=== PATIENT | female | born 1965 | race Caucasian/White ===

== ENCOUNTER → 2020-01-19 | Outpatient (CLI) | payer OTHER ==
[~2020-01-19] MED LIST: ALBU90OI INH; ALBU90OI61 INH; AMOX500 PO; AZIT250 PO; DOXY100 PO; HYDACE5 PO; LEVSOD100 PO; LEVSOD50 PO; MOMENI; Mucinex600 MG PO; Norco 5-325 Ta1 EACH PO; PENVK500 PO; POLTRIOPSO OD; PRAHYD1AE TOP; RXALBOI INH; Veramyst10 GM NS; Zithromax250 MG PO
[2020-01-19 14:59] LABS: Free Thyroxine 0.94 ng/dL (0.70-1.60); Thyroid Stimulating Hormone 4.763 uIU/mL (0.360-4.800)
== END | disposition home or self-care (01) ==
LOC: LAB EV 14:30 → LAB SHORT 14:30
PROVIDERS: Physician Assistant
DX: E03.9 Hypothyroidism, unspecified (principal)
CPT/HCPCS: 84439; 84443; 84481

== ENCOUNTER 2020-06-20 08:29 | Day surgery (SDC) | payer OTHER ==
[~2020-06-20] VITALS: Ht 162.6 cm; Wt 122.4 kg
[~2020-06-20 08:29] MED LIST changes: +ACETAMINOPHEN500 MG PO; +ALBU2.5V5 INH; +BENADRYL25 M1 PO; +CHOLP PO; +FLONASE SENSIM5.9 M1; +K-Dur 20 meq T20 MEQ PO; +METO25ER PO; +SPIR50 PO; +SYMBICORT 160-4.6 GM INH; +TIROSINT125 MCG PO; +VITAMIN D32000 UNI2 PO; +ZYRTEC10 M2 PO
--- NOTE | 2020-06-20 12:59 | NUR ---
06/20/20 1259 Marsha Barros WHEN ASKED PT. IF SHE HAD ANY PAIN, PT. VERBALIZED HAVING SOME SORENESS IN BOTTOM AREA. PT. ALSO VERBALIZES HAVING SOME GAS DISCOMFORT. PT. INSTRUCTED THAT EVENTUALLY THE AIR WOULD ABSORB & SHOULD GET BETTER.
== END 2020-06-20 10:50 | disposition home or self-care (01) ==
LOC: ORSCSDS 08:29
PROVIDERS: Internal Medicine Gastroenterology
PROC: 0DBN8ZX Excision of Sigmoid Colon, Via Natural or Artificial Opening Endoscopic, Diagnostic (ICD-10-PCS; principal; 2020-06-20 09:45)
PROC: 0DBK8ZX Excision of Ascending Colon, Via Natural or Artificial Opening Endoscopic, Diagnostic (ICD-10-PCS; principal; 2020-06-20 09:45)
PROC: 0DBE8ZX Excision of Large Intestine, Via Natural or Artificial Opening Endoscopic, Diagnostic (ICD-10-PCS; principal; 2020-06-20 09:45)
DX: R19.7 Diarrhea, unspecified (principal); D12.2 Benign neoplasm of ascending colon; D12.5 Benign neoplasm of sigmoid colon; K57.30 Diverticulosis of large intestine without perforation or abscess without bleeding; K64.1 Second degree hemorrhoids; I10 Essential (primary) hypertension; E03.9 Hypothyroidism, unspecified; E78.00 Pure hypercholesterolemia, unspecified; J45.909 Unspecified asthma, uncomplicated; Z79.899 Other long term (current) drug therapy; E66.01 Morbid (severe) obesity due to excess calories; Z68.42 Body mass index [BMI] 45.0-49.9, adult
CPT/HCPCS: 88305; J2704; J7120

== ENCOUNTER → 2021-07-14 | Outpatient (CLI) | payer OTHER | END | disposition home or self-care (01) | LOC: LAB SHORT 07:48 | DX: N95.0 Postmenopausal bleeding (principal) | CPT/HCPCS: 88305 ==

== ENCOUNTER → 2022-09-06 | Outpatient (CLI) | payer OTHER ==
[2022-09-07 10:35] LABS: Candida species (DNA Probe) Negative (NEGATIVE); G. vaginalis (DNA Probe) Negative (NEGATIVE); T. vaginalis (DNA Probe) Negative (NEGATIVE)
== END ==
LOC: LAB 15:43 → LAB SHORT 15:43
PROVIDERS: Obstetrics & Gynecology
DX: N89.8 Other specified noninflammatory disorders of vagina (principal)
CPT/HCPCS: 87480; 87510; 87660

== ENCOUNTER 2025-01-26 14:54 | Emergency (ER) | payer OTHER ==
[~2025-01-26] VITALS: Ht 165.1 cm; Wt 108.9 kg
[2025-01-26 15:06] VITALS: BP 147/82
== END 2025-01-26 17:01 | disposition home or self-care (01) ==
LOC: ER 14:54
DX: M25.561 Pain in right knee (principal); Z88.7 Allergy status to serum and vaccine; Z88.2 Allergy status to sulfonamides; Z88.8 Allergy status to other drugs, medicaments and biological substances; Z79.2 Long term (current) use of antibiotics; Z79.899 Other long term (current) drug therapy; J45.909 Unspecified asthma, uncomplicated
CPT/HCPCS: 73562-RT; 99283-25